=== PATIENT | male | born 1985 | race Caucasian/White ===

== ENCOUNTER 2016-09-22 07:05 | Emergency (ER) | payer BC ==
[~2016-09-22] VITALS: Ht 185.4 cm; Wt 91.0 kg
[2016-09-22 07:18] VITALS: BP 141/80; PULSE 103; RESP 16; TEMP 99.5; O2SAT 99
[2016-09-22] MEDS ORDERED: IBUPROFEN 800 MG TAB PO ONE (07:30)
[2016-09-22] MEDS ORDERED: IBUP800T23 PO (07:31)
--- NOTE | 2016-09-22 07:31 | PD ---
HPI Chief Complaint: Cold / Flu Symptoms Time Seen by Provider: 07:30 Travel History International Travel<30 days: No Contact w/Intl Traveler<30days: No Traveled to known affect area: No History of Present Illness HPI 30-year-old male presents to the emergency Department with complaint of cough, nasal congestion, sore throat, body aches, fever for 1-2 days. Thinks He has the flu. Did not take his temperature and cannot report her MAXIMUM TEMPERATURE. Reports crackling in his right ear. He is concerned because his foot. Has been telling him that his heart rate has been anywhere from 100 to low 120s at time. Has history of anxiety and takes Ativan; last took Ativan last night. Denies chest pain, shortness of breath. Denies hemoptysis. Denies leg edema. Denies recent surgery, travel, trauma, hospitalization. Has not taken any medications or tried any treatments to alleviate his symptoms. No known allergies. History of anxiety. Denies other significant past medical history. No other modifying factors or associated signs and symptoms. PFSH Past Medical History Cardiovascular Problems: Yes (LEFT VENTICULAR HYPERTROPHY, HEART MURMER) Social History Alcohol Use: No Tobacco Use: No Substance Use: No Allergies-Medications (Allergen,Severity, Reaction): Coded Allergies: No Known Allergies (Unverified , 02/22/15) Reported Meds & Prescriptions Reported Meds & Active Scripts Active Ibuprofen 800 Mg Tab 800 Mg PO Q6HR PRN Reported Ativan (Lorazepam) 0.5 Mg Tab 0.5 Mg PO DAILY PRN Review of Systems Except as stated in HPI: all other systems reviewed are Neg Physical Exam Narrative GENERAL: Well-nourished, well-developed male patient, in no acute distress; low-grade fever 99.5; nontoxic appearing SKIN: Warm and dry. No rash. HEAD: Atraumatic. Normocephalic. EYES: Pupils equal and round at 3 mm with brisk reaction. No scleral icterus. No injection or drainage. PERRLA. ENT: Mucosa pink and moist. No erythema or exudates. No uvular edema. No uvular , palatal, or tonsillar deviation. Airway patent. EARS: Bilateral pinnae and external canals appear within normal limits. Bilateral tympanic membranes without erythema, dullness or perforation. NECK: Trachea midline. No lymphadenopathy. CARDIOVASCULAR: Regular rate 90-100bmp and regular rhythm. No murmur appreciated. RESPIRATORY: No accessory muscle use. Clear to auscultation. Breath sounds equal bilaterally. GASTROINTESTINAL: Abdomen soft, non-tender, nondistended. Hepatic and splenic margins not palpable. Bowel sounds are active 4 quadrants. MUSCULOSKELETAL: No obvious deformities. No clubbing. No cyanosis. No edema. NEUROLOGICAL: Awake and alert. Oriented 3. No obvious cranial nerve deficits. Motor grossly within normal limits. Normal speech. Moves all extremities. 5/5 strength to all extremities. PSYCHIATRIC: Appropriate mood and affect; insight and judgment normal. Data Data Last Documented VS Vital Signs Date Time Temp Pulse Resp B/P Pulse Ox O2 Delivery O2 Flow Rate FiO2 09/22/16 08:17 86 20 96 09/22/16 07:18 99.5 141/80 Orders Influenzae A/B Antigen (09/22/16 07:28) Ibuprofen (Motrin) (09/22/16 07:30) Group A Rapid Strep Screen (09/22/16 07:29) Strep Culture (Group A) (09/22/16 07:28) MDM Medical Decision Making Medical Screen Exam Complete: Yes Emergency Medical Condition: Yes Medical Record Reviewed: Yes Differential Diagnosis Influenza, viral illness, strep pharyngitis, upper respiratory infection Narrative Course 30-year-old male with cold/flu symptoms. Low-grade fever of 99.5 in the ER. Has not taken temperature at home and cannot report a MAXIMUM TEMPERATURE. Patient is nontoxic-appearing. Does have history of anxiety and takes Ativan and his heart rate is in the low 100s upon arrival to the ER. Patient is concerned of his heart rate and then checking it periodically on his foot bit; says he's seen a increase into the low 120s. He denies chest pain or shortness of breath. Heart rate on physical exam is approximately 90-100 bpm. The patient denies history of PE or DVT; denies recent surgery or trauma, hemoptysis , and leg edema. The patient has no present criteria for pulmonary embolism; using the PERC rule for pulmonary embolism there is no need for further workup for PE. 0825: Influenza and rapid strep negative. Patient's heart rate rechecked prior to discharge 80-90bpm. Discussed viral illness and symptom management. Ibuprofen prescribed for home. Patient verbalizes understanding and agreement with treatment plan. Patient is medically cleared and stable for discharge. Discussed reasons to return to the emergency department. Instructed patient to follow up with primary care provider. Patient agrees with treatment plan. The patients vital signs are stable and the patient is stable for outpatient follow- up and treatment. Patient discharged home, stable and in no acute distress. Diagnosis Primary Impression: Viral illness Referrals: Primary Care Physician Patient Instructions: Cold Symptoms (ED), General Instructions, Safe Use of Cough and Cold Medicines (ED) Additional Instructions: Ibuprofen or Tylenol as directed and as needed to reduce fever; may alternate ibuprofen and Tylenol as needed every 3 hours to minimize fever Get plenty of sleep/rest Drink plenty of fluids to prevent dehydration Diana diet to encourage nutrition such as crackers, fruit, applesauce, toast, soup etc. Use an air humidifier/turn off ceiling fans Follow-up with your primary care provider Return immediately to the emergency department with worsening of symptoms Med/Other Pt SpecificInfo: Prescription(s) given Scripts Ibuprofen 800 Mg [id number] Mg PO Q6HR PRN (PAIN) #30 TAB Ref 0 Prov:Jessie Melendez 09/22/16 Disposition: 01 DISCHARGE HOME Condition: Stable Jessie Melendez Sep 22, 2016 07:31
[2016-09-22] MEDS ORDERED: LORA-392 PO (07:38)
[2016-09-22 08:17] VITALS: PULSE 86; RESP 20; O2SAT 96
== END 2016-09-22 08:47 | disposition home or self-care (01) ==
LOC: NEPB 07:05
DX: B34.9 Viral infection, unspecified (principal); R50.9 Fever, unspecified; J02.9 Acute pharyngitis, unspecified; F41.9 Anxiety disorder, unspecified
CPT/HCPCS: 87081; 87804; 87880; 99283

== ENCOUNTER 2017-03-24 21:05 | Emergency (ER) | payer BC ==
[~2017-03-24] VITALS: Ht 185.4 cm; Wt 97.3 kg
[~2017-03-24 21:05] MED LIST: IBUP800T23 PO; LORA-392 PO
[2017-03-24 21:33] VITALS: BP 129/76; PULSE 84; RESP 20; TEMP 98.8; O2SAT 97
[2017-03-24] MEDS ORDERED: ATEN25TA PO (21:45)
--- NOTE | 2017-03-24 22:41 | PD ---
HPI Chief Complaint: ENT Complaint Time Seen by Provider: 22:23 Travel History International Travel<30 days: No Contact w/Intl Traveler<30days: No Traveled to known affect area: No History of Present Illness HPI 31-year-old male presents to the emergency room for evaluation of nonproductive cough for the past 2 months that worsened over the past 3 days. States since worsening he has coughed up clear phlegm. Patient saw his primary care physician twice and was told it was allergies both times. He was not given anything for his symptoms. He has not been taking anything for his symptoms. He denies fever, chills, nausea, vomiting, congestion, sore throat, and earache. Patient has history of heart palpitations and anxiety for which she takes atenolol. PFSH Past Medical History Anxiety: Yes Cardiovascular Problems: Yes (LEFT VENTICULAR HYPERTROPHY, HEART MURMER) Diminished Hearing: No Tetanus Vaccination: Unknown Influenza Vaccination: No ?: Not Social History Alcohol Use: No Tobacco Use: Yes (Dip 1/2 can /day) Substance Use: No Allergies-Medications (Allergen,Severity, Reaction): Coded Allergies: No Known Allergies (Unverified , 02/22/15) Reported Meds & Prescriptions Reported Meds & Active Scripts Active Prednisone 20 Mg Tab 40 Mg PO DAILY Take 40 mg (2 tablets) daily for 5 days Ventolin Hfa 18 GM Inh (Albuterol Sulfate) 90 Mcg/Act Aer 2 Puff INH Q6H PRN Reported Atenolol 25 Mg Tab 25 Mg PO DAILY Ativan (Lorazepam) 0.5 Mg Tab 0.5 Mg PO DAILY PRN Review of Systems Except as stated in HPI: all other systems reviewed are Neg Physical Exam Narrative GENERAL: Well-nourished, well-developed male in no acute distress. Afebrile. Ambulatory. SKIN: Focused skin assessment warm/dry. HEAD: Normocephalic. EYES: No scleral icterus. No injection or drainage. ENT: Mucosa pink and moist. No erythema or exudates. No uvular edema. No uvular , palatal, or tonsillar deviation. Airway patent. Nasal turbinates appear normal without nasal blood, purulent drainage or septal hematoma. EARS: Bilateral pinnae and external canals appear within normal limits. Bilateral tympanic membranes without erythema, dullness or perforation NECK: Supple, trachea midline. No JVD or lymphadenopathy. CARDIOVASCULAR: Regular rate and rhythm without murmurs, gallops, or rubs. RESPIRATORY: Breath sounds equal bilaterally. No accessory muscle use. Mild wheezes and rhonchi that clear with coughing. Data Data Last Documented VS Vital Signs Date Time Temp Pulse Resp B/P (MAP) Pulse Ox O2 Delivery O2 Flow Rate FiO2 03/24/17 23:38 98.8 84 126/78 (94) 99 03/24/17 21:33 20 Orders Orders Chest, Pa & Lat (03/24/17 ) [facility] Medical Decision Making Medical Screen Exam Complete: Yes Emergency Medical Condition: Yes Medical Record Reviewed: Yes Differential Diagnosis Cough, bronchitis, GERD, pneumonia, viral infection, allergies Narrative Course 31-year-old male presents to the emergency room for evaluation of nonproductive cough for the past 2 months that worsened over the past 3 days. Patient is afebrile and well-appearing in the emergency room. Vital signs stable. No history of fever. Lung sounds reveal bilateral wheezing and mild rhonchi that clear with coughing. Patient was informed that chest x-ray would be of no value because it would only show a pneumonia and I have no suspicion for pneumonia given the history and physical exam. He requested to have x-ray because of persistence of cough. X-ray shows no cardiopulmonary disease. This is viral URI. Patient discharged with prescriptions for albuterol and prednisone. Told to follow-up the primary care physician or return for worsening symptoms. He understands and agrees to plan. Diagnosis Primary Impression: Viral illness Referrals: Primary Care Physician Additional Instructions: Rest and drink plenty of fluids. Inhaler as directed, as needed for cough. Prednisone as directed, until gone. Follow-up with a primary care physician. Return to the emergency room for worsening symptoms. Med/Other Pt SpecificInfo: Prescription(s) given Scripts Prednisone (Prednisone) 20 Mg Tab 40 MG PO DAILY, #10 TAB 0 Refills Take 40 mg (2 tablets) daily for 5 days Prov: Rosalino Langford MD 03/24/17 Albuterol 18 GM Inh (Ventolin Hfa 18 GM Inh) 90 Mcg/Act Aer 2 PUFF INH Q6H Y for SHORTNESS OF BREATH, #1 INHALER 0 Refills Prov: Rosalino Langford MD 03/24/17 Disposition: 01 DISCHARGE HOME Condition: Stable Sofia Gray Mar 24, 2017 22:41
[2017-03-24] MEDS ORDERED: PRED20 PO (22:57)
[2017-03-24] MEDS ORDERED: VENTAER INH (22:57)
--- NOTE | 2017-03-24 23:09 | RADRPT ---
EXAM DATE/TIME: 03/24/2017 22:52 [facility] COMPARISON: No previous studies available for comparison. INDICATIONS : Cough and shortness of breath. MEDICAL HISTORY : None. SURGICAL HISTORY : None. ENCOUNTER: Initial ACUITY: 2 months PAIN SCORE: 0/10 LOCATION: Bilateral chest FINDINGS: PA and lateral views of the chest demonstrate the lungs to be symmetrically aerated without evidence of mass, infiltrate or effusion. The cardiomediastinal contours are unremarkable. Osseous structure s are intact. CONCLUSION: No acute cardiopulmonary process. Te Rosas MD on March 24, 2017 at 23:07 Board Certified Radiologist. This report was verified electronically.
[2017-03-24 23:38] VITALS: BP 126/78; TEMP 98.8
== END 2017-03-24 23:41 | disposition home or self-care (01) ==
LOC: PHEFT 21:05
DX: B34.9 Viral infection, unspecified (principal); J06.9 Acute upper respiratory infection, unspecified; R05 Cough; R06.2 Wheezing; Z72.0 Tobacco use; Z86.59 Personal history of other mental and behavioral disorders; Z86.79 Personal history of other diseases of the circulatory system
CPT/HCPCS: 71020; 99284